=== PATIENT | male | born 1970 | race Caucasian/White ===

== ENCOUNTER → 2016-12-07 | Outpatient (CLI) | payer BC ==
--- NOTE | 2016-12-07 18:20 | MR ---
EXAMINATION TYPE: MR lumbar spine wo con DATE OF EXAM: 12/07/2016 10:48 AM COMPARISON: CT scan 04/01/2012 HISTORY: Low back pain, leg pain TECHNIQUE: T1 and T2 sagittal images of the lumbar spine are submitted. The patient could not cont inue with the exam. The patient experienced claustrophobia and axial images could not be obtained. FINDINGS: Findings are based on on sagittal images only due to the patient's claustrophobia At L4-L5 there appears to be degenerative disc disease and disc bulging or protrusion. Bilateral fora ham encroachment is noted. At L5-S1 there is a anterolisthesis grade 2 with severe degenerative disc disease. This results in mo derate to severe bilateral foraminal encroachment. Remaining levels demonstrate no evidence of degenerative disc disease, foraminal encroachment, sagitt al disc bulging or canal stenosis. Assessment spinal cord is limited to the T2 and T1 sagittal images with no definite abnormal signal. Paraspinal soft tissues additional structures are nondiagnostic. IMPRESSION: 1. Limited exam due to patient's claustrophobia with only sagittal images obtained. Grade 2 anterolis thesis of L5 on S1 with bilateral spondylolysis. There is severe bilateral foraminal encroachment. 2. Disc bulging or protrusion sagittally at L4-L5 with degenerative disc disease and bilateral forami nal encroachment.
== END | disposition home or self-care (01) ==
LOC: RADMRIMAIN 10:19
PROVIDERS: ATTEND Family Medicine
DX: M51.26 Other intervertebral disc displacement, lumbar region (principal); M43.17 Spondylolisthesis, lumbosacral region; M51.36 Other intervertebral disc degeneration, lumbar region
CPT/HCPCS: 72148

== ENCOUNTER 2017-05-07 08:27 | Day surgery (SDC) | payer BC ==
[2017-05-03 13:31] VITALS: BMI 28.2
[2017-05-07 08:42] VITALS: TEMP 98
[2017-05-07] MEDS ORDERED: LIDOCAINE 1% 20 ML VIAL (10MG/ML) FOR IV START INTRADERMA ONE (08:49)
[2017-05-07] MEDS ORDERED: LACTATED RINGERS 1,000 ML IV ONE (08:49)
[2017-05-07] MEDS ORDERED: MIDAZOLAM 2 MG/2 ML VIAL ONE (09:25)
[2017-05-07] MEDS ORDERED: fentaNYL (PF) 50 MCG/ML 2 ML AMP ONE (09:25)
[2017-05-07] MEDS ORDERED: IOHEXOL 180 MG/ML 1 ML ML ONE (09:25)
[2017-05-07] MEDS ORDERED: DEXAMETHASONE SOD PHOS (MDV) 100 MG/10 ML VIAL ONE (09:25)
--- NOTE | 2017-05-07 09:44 | P.PCN ---
Date of Procedure: 05/07/17 Preoperative Diagnosis: Postoperative Diagnosis: Procedure(s) Performed: Implants: Surgeon: Jignesh Chow Pathology: none sent Condition: stable Disposition: PACU Indications for Procedure: Operative Findings: Description of Procedure: PREOPERATIVE DIAGNOSIS: 1-Lumbar radiculitis. POSTOPERATIVE DIAGNOSIS: 1-Lumbar radiculitis. PROCEDURE 1. Lumbar epidural steroid injection under fluoroscopic guidance at the L4-L5 level. 2. Lumbar epidurogram. ANESTHESIA: Local with 1% lidocaine; conscious sedation with Versed/fentanyl. EBL: Minimal PROCEDURE INDICATION: The patient with low back pain and radiculitis symptoms unresponsive to conservative treatment, referred by Dr. Roldan because the patient is trying to avoid spine surgery. Fluoroscopy was used to optimize visualization of the needle placement and to maximize safety. No use of blood thinners. LESI #1 today. PROCEDURE DESCRIPTION / TECHNIQUE: The patient was seen and identified in the preoperative area. Risks, benefits, complications, and alternatives were discussed with the patient, including but not limited to bleeding, infection, nerve damage, allergic reactions to medications, and incomplete pain relief. The patient agreed to proceed with the procedure and signed the consent after all questions were answered. IV was started, and vital signs were stable. Patient was taken to the OR and time out was completed to confirm patient position, procedure, laterality of pain, and allergies. The patient was placed in the prone position on procedure table and a pillow was placed under the abdomen to reduce lumbar lordosis. The lumbosacral area was prepped and draped in the usual sterile fashion. Critical pause was taken. Vital signs were closely monitored during the procedure. Conscious sedation was used during the procedure to decrease patients anxiety. Using anterior-posterior fluoroscopy, the L4-L5 interlaminar space was identified and the skin over this site was marked and then infiltrated with 1% lidocaine subcutaneously. Subsequently, a 20-gauge 3.5-inch Tuohy epidural needle was inserted and advanced toward the epidural space using the Loss of resistance technique and guided by AP and lateral fluoroscopy. The correct needle position in the epidural space was verified with the injection of 2 mL of the water soluble contrast dye Omnipaque 300 contrast and observing an excellent epidurogram with the epidural spread of the dye, after negative aspiration for blood and CSF and in the absence of paresthesias. Again after negative aspiration, a 8 ml mixture containing 20 mg of Decadron and 5 ml of preservative free Normal Saline, and 2 ml of preservative free lidocaine 1% solution was injected and a washout of epidurogram was seen. Needle was withdrawn intact, skin was cleansed, and bandages were applied. COMPLICATIONS: None COMMENTS: DISPOSITION / PLANS: The patient was placed in a supine position and transferred to the recovery area in a stable condition for observation. There was no evidence of lower extremity motor or sensory deficit after the procedure. Patient was discharged from the recovery room after meeting discharge criteria. Home discharge instructions were given to the patient by the staff. The patient was reexamined prior to discharge and there were no issues. The patient will schedule follow-up LESI in 4-6 weeks.
[2017-05-07] MEDS ORDERED: IV FLUID CONTINUATION 550 ML IV ONE (09:55)
[2017-05-07 09:59] VITALS: RESP 18
[2017-05-07 10:41] VITALS: BP 123/76; PULSE 88
--- NOTE | 2017-05-07 12:07 | FL ---
Fluoroscopy HISTORY: Pain 10 seconds fluoroscopy time supplied to the referring clinician. 5 intraoperative C-arm images docum ent the procedure. See dictated report from anesthesia.
== END 2017-05-07 10:42 | disposition home or self-care (01) ==
LOC: ORPAIN 08:27
PROVIDERS: ATTEND Anesthesiology
DX: M54.16 Radiculopathy, lumbar region (principal); M43.17 Spondylolisthesis, lumbosacral region; Z79.1 Long term (current) use of non-steroidal anti-inflammatories (NSAID); Z79.899 Other long term (current) drug therapy
CPT/HCPCS: 99152; 62323; J2250; J1100; Q9965; J3010

== ENCOUNTER → 2017-06-24 | Outpatient (CLI) | payer BC ==
[2017-06-24 14:11] VITALS: BP 146/103; PULSE 125; RESP 16; TEMP 98.2
--- NOTE | 2017-06-24 14:41 | P.PN ---
Subjective This is follow-up visit for this patient with a history of severe and chronic low back pain secondary to lumbar degenerative disc diseases , lumbar foraminal stenosis , and anterior listhesis we have done interventional pain management injection, epidural steroid injections 1 and he is here today for follow-up visit he reported that he had 40% decrease in his pain but only for a few days, Physical Examinations : 1-Constitutiona : Cooperative , not in acute distress . 2-HEENT : nech ; supple , no Lymphadenopathy , no Thyromegaly , normal thyroid size . eyes : no ptosis , no icterus, no photophobia . ENT : normal of hearing , normal oropharynx , no Thrush . 3- Respiratory : Chest clear to auscultations Bilaterally , no wheezing , no Rhonchi . 4- Cardiovascular : regular rate and rhythem , S1 , S2 , no S3 , no S4. 5- Gastrointestinal : abdomen soft no tenderness , bowel sounds positive all four quadrents , no organomegally . 6- Genitourinary : Defferred . 7- neurologic : Cranial nerve II to XII intact , no focal neurological deffecit . 8-psychatric : alert , oriented X 3 , appropriate affect , intact judgment and insight . 9-Lymphatic : no Lymphadenopathy . 10- musculoskeltal : exams of the Lumber spine = motor strength lower extremities ,thigh and legs .5/5 deep tendon reflexes : normal Knee Jerk , normal ankle Jerk . lumber facet Loading Test positive strait leg raising test positive at 30 degree , RT ,LT , Fabere test positive RT and positive LT . Range of motion: Range of motion in flexion of the lumbar spine 30 degrees Range of motion range of motion of extension of the lumbar spine 10 Assessment and plan = Chronic low back pain secondary to lumbar degenerative disc disease , lumbar spondylolesthesis , or foraminal stenosis Patient had lumbar epidural steroid injections 1 , he had 40% decrease in his pain level and only lasted for a few days, as per guidelines of his insurance company, will not approve second injection unless he got 50% improvement in his pain level ,and should be increasing his activity of daily living is 50%, and he should be decrease in his pain medication This did not help and for this reason , the second injection would not be approved by his insurance, patient will follow up with Dr. Roldan to discuss surgical interventions, I encouraged patient to do aquatic therapy, continue to do physical therapy as he can and he reported that his done physical therapy on 2 different sessions without any benefit, he will follow up with the pain clinic when necessary Objective - Vital Signs Vital signs: Vital Signs Temp 98.2 F 06/24/17 14:06 Pulse 125 H 06/24/17 14:06 Resp 16 06/24/17 14:06 BP 146/103 06/24/17 14:06 Pulse Ox 95 06/24/17 14:06 Intake & Output 06/23/17 06/24/17 06/24/17 18:59 06:59 18:59 Weight 81.647 kg
== END ==
LOC: PNWHC3 13:55
DX: M99.73 Connective tissue and disc stenosis of intervertebral foramina of lumbar region (principal); M43.16 Spondylolisthesis, lumbar region; M51.36 Other intervertebral disc degeneration, lumbar region; Z79.891 Long term (current) use of opiate analgesic
CPT/HCPCS: 99211

== ENCOUNTER 2022-07-15 00:38 | Emergency (ER) | payer BC ==
[2022-07-15] MEDS ORDERED: SODIUM CHLORIDE 0.9% 500 ML 500 ML IV ONE (07:21)
[2022-07-15] MEDS ORDERED: MORPHINE SULFATE 4 MG/ML SYRINGE IVP STA ×2 (07:21→08:55)
[2022-07-15] MEDS ORDERED: cefTRIAXone IN SWFI 1,000 MG/10 ML SYRINGE IVP STA (07:22)
--- NOTE | 2022-07-15 07:46 | ED ---
Skin/Abscess/FB HPI - General Source: patient, RN notes reviewed, old records reviewed Mode of arrival: ambulatory Limitations: no limitations - History of Present Illness MD complaint: abscess/boil -: days(s) (1) Tetanus Up to Date: yes Location: genitals (scrotum) Severity scale (1-10): 10 Quality: constant Consistency: constant Associated symptoms: denies other symptoms <Dakota Mitchell - Last Filed: 07/15/22 09:43> <Nicolas Myers - Last Filed: 07/15/22 13:47> - General Chief complaint: Skin/Abscess/Foreign Body Stated complaint: Possible abscess Time Seen by Provider: 07/15/22 07:11 - History of Present Illness Initial comments: Well-appearing 52-year-old male who presents ambulatory with complaints of small bump to scrotum he noticed yesterday. Denies fevers, no nausea vomiting or d iarrhea. Denies any medical history. (Dakota Mitchell) - Related Data Home Medications Medication Instructions Recorded Confirmed Cyclobenzaprine [Flexeril] 10 mg PO TID PRN 05/03/17 06/24/17 Ibuprofen [Motrin] 800 mg PO BID PRN 05/03/17 06/24/17 Previous Rx's Medication Instructions Recorded Cephalexin [Keflex] 500 mg PO Q6HR 7 Days #28 cap 07/15/22 Sulfamethox-Tmp 800-160Mg [Bactrim 1 each PO Q12HR 7 Days #14 tab 07/15/22 Ds] Allergies Allergy/AdvReac Type Severity Reaction Status Date / Time No Known Allergies Allergy Verified 06/24/17 14:05 Review of Systems ROS Other: All systems not noted in ROS Statement are negative. <Dakota Mitchell - Last Filed: 07/15/22 09:43> ROS Other: All systems not noted in ROS Statement are negative. <Nicolas Myers - Last Filed: 07/15/22 13:47> ROS Statement: Those systems with pertinent positive or pertinent negative responses have been documented in the HPI. Past Medical History Past Medical History: Skin Disorder Additional Past Medical History / Comment(s): sciatic nerve pain, eczema, History of Any Multi-Drug Resistant Organisms: None Reported Additional Past Surgical History / Comment(s): tendon surgery middle finger rt hand Past Anesthesia/Blood Transfusion Reactions: Motion Sickness Past Psychological History: No Psychological Hx Reported Past Alcohol Use History: Occasional Additional Past Alcohol Use History / Comment(s): quit smoking about 5 yrs ago, smoked for 15 yrs, < 1 PPD Past Drug Use History: None Reported - Past Family History Mother Family Medical History: No Reported History <Dakota Mitchell - Last Filed: 07/15/22 09:43> General Exam Limitations: no limitations General appearance: alert, in no apparent distress Head exam: Present: atraumatic Eye exam: Present: normal appearance. Absent: periorbital swelling Neck exam: Present: full ROM. Absent: meningismus Respiratory exam: Absent: respiratory distress, accessory muscle use Cardiovascular Exam: Present: tachycardia GI/Abdominal exam: Present: soft. Absent: distended, tenderness, guarding, rebound, rigid exam: Present: scrotal swelling, other (Purulent draining abscess base of the left scrotum, open wound approximately 0.5cm) Extremities exam: Present: normal capillary refill Neurological exam: Present: alert, oriented X3, normal gait Psychiatric exam: Present: normal affect, normal mood Skin exam: Present: warm, dry, normal color. Absent: cyanosis, diaphoretic, petechiae, pallor <Dakota Mitchell - Last Filed: 07/15/22 09:43> Course Vital Signs 07/15/22 07/15/22 00:45 09:10 Temperature 97.8 F 98 F Pulse Rate 118 H 91 Respiratory 16 18 Rate Blood Pressure 167/90 148/84 O2 Sat by Pulse 98 97 Oximetry Medical Decision Making - Lab Data Result diagrams: 07/15/22 07:40 07/15/22 07:41 <Dakota Mitchell - Last Filed: 07/15/22 09:43> - Lab Data Result diagrams: 07/15/22 07:40 07/15/22 07:41 <Nicolas Myers - Last Filed: 07/15/22 13:47> - Medical Decision Making On physical exam there is a 0.5cm open wound with copious purulent drainage from left side scrotum. There is no evidence of leukocytosis. Patient denies any fevers, no nausea or vomiting. Ultrasound done shows Left-sided abscess measuring 5.5 x 4.0 x 3.1 separate from left testicle. Epididymis appears normal. There is trace bilateral hydroceles. Upon further questioning patient states that he is diabetic and takes metformin 1000 mg twice a day. He was directed to follow-up with Dr. Owen and urology within the next two days. Take antibiotics as prescribed, sitz baths to 3 times a day for the next 3 days to promote drainage. He is agreeable to this plan of care. Dr. Myers at bedside also agreeable to this plan of care. (Dakota Mitchell) - Lab Data Lab Results 07/15/22 07/15/22 07/15/22 Range/Units 07:40 07:41 07:49 WBC 10.9 H (3.8-10.6) k/uL RBC 4.31 (4.30-5.90) m/uL Hgb 14.1 (13.0-17.5) gm/dL Hct 39.0 (39.0-53.0) % MCV 90.4 (80.0-100.0) fL MCH 32.7 (25.0-35.0) pg MCHC 36.2 (31.0-37.0) g/dL RDW 13.2 (11.5-15.5) % Plt Count 258 (150-450) k/uL MPV 7.6 Neutrophils % 84 % Lymphocytes % 9 % Monocytes % 5 % Eosinophils % 1 % Basophils % 0 % Neutrophils # 9.1 H (1.3-7.7) k/uL Lymphocytes # 1.0 (1.0-4.8) k/uL Monocytes # 0.5 (0-1.0) k/uL Eosinophils # 0.1 (0-0.7) k/uL Basophils # 0.0 (0-0.2) k/uL Hyperchromasia Slight Sodium 130 L (137-145) mmol/L Potassium 4.2 (3.5-5.1) mmol/L Chloride 94 L (98-107) mmol/L Carbon Dioxide 22 (22-30) mmol/L Anion Gap 14 mmol/L BUN 11 (9-20) mg/dL Creatinine 0.70 (0.66-1.25) mg/dL Est GFR (CKD-EPI)AfAm >90 (>60 ml/min/1.73 sqM) Est GFR (CKD-EPI)NonAf >90 (>60 ml/min/1.73 sqM) Glucose 211 H (74-99) mg/dL Plasma Lactic Acid Daniel 1.9 (0.7-2.0) mmol/L Calcium 9.5 (8.4-10.2) mg/dL Total Bilirubin 1.1 (0.2-1.3) mg/dL AST 23 (17-59) U/L ALT 37 (4-49) U/L Alkaline Phosphatase 93 (38-126) U/L Total Protein 7.5 (6.3-8.2) g/dL Albumin 4.8 (3.5-5.0) g/dL Disposition Is patient prescribed a controlled substance at d/c from ED?: No Time of Disposition: 08:54 <Dakota Mitchell - Last Filed: 07/15/22 09:43> <Nicolas Myers - Last Filed: 07/15/22 13:47> Clinical Impression: Scrotal abscess, Cellulitis, scrotum, Hyperglycemia Disposition: HOME SELF-CARE Condition: Good Instructions (If sedation given, give patient instructions): Cellulitis (ED), Abscess (ED) Additional Instructions: Soak in a sitz bath 2-3 times a day for 15 minutes for the next 3 days. Take antibiotics as prescribed. Tylenol and or Motrin as needed for pain or discomfort. Follow-up with the primary care doctor next week and discuss your elevated blood glucose levels. Prescriptions: Sulfamethox-Tmp 800-160Mg [Bactrim Ds] 1 each PO Q12HR 7 Days #14 tab Cephalexin [Keflex] 500 mg PO Q6HR 7 Days #28 cap Referrals: Abelardo Owen MD [Primary Care Provider] - 1-2 days Robin Shields MD [STAFF PHYSICIAN] - 1-2 days
[2022-07-15 08:07] LABS: Basophils % (A) 0 %; Eosinophils # (A) 0.1 k/uL (0-0.7); Eosinophils % (A) 1 %; HGB 14.1 gm/dL (13.0-17.5); Hyperchromasia Slight; Lymphocytes % (A) 9 %; MCH 32.7 pg (25.0-35.0); MCHC 36.2 g/dL (31.0-37.0); MCV 90.4 fL (80.0-100.0); Mean Platelet Volume 7.6; Monocytes # (A) 0.5 k/uL (0-1.0); Monocytes % (A) 5 %; Neutrophils # (A) 9.1 k/uL (1.3-7.7); Neutrophils % (A) 84 %; Platelet Count 258 k/uL (150-450); RBC 4.31 m/uL (4.30-5.90); RDW 13.2 % (11.5-15.5); WBC 10.9 k/uL (3.8-10.6)
--- NOTE | 2022-07-15 08:54 | US ---
EXAMINATION TYPE: US scrotum with doppler. DATE OF EXAM: 07/15/2022 COMPARISON: NONE CLINICAL HISTORY: 52-year-old male abscess. Pt states left scrotal swelling and pain x 2 days, active foul smelling drainage from left scrotum TECHNIQUE: Grayscale and color Doppler Duplex imaging performed of the scrotum. FINDINGS: EXAM MEASUREMENTS: TESTICLES: Right Testicle: 4.8 x 2.8 x 4.0 cm Left Testicle: 4.6 x 2.5 x 3.7 cm EPIDIDYMIS HEAD: Right Epididymis: 1.2 cm Left Epididymis: 1.4 cm Doppler performed to assess for testicular vascularity; good bilateral color flow and waveforms are s een. There is no evidence of testicular torsion. Both testicles show normal homogeneous appearance without hyperemia. Presence of hydroceles: Symmetric trace to small bilateral hydroceles. Presence of varicoceles: No Individual [employer] In[employer] notes: 5.5 x 3.1 x 4.0 cm fluid collection with mobile debris in area of pt's pain and lump (lateral and s eparate from left testicle)- actively draining during exam- purulent drainage- probable abscess IMPRESSION: 1. Left-sided abscess measuring 5.5 x 4.0 x 3.1 cm separate from the left testicle. The underlying te sticle and epididymis appears normal. 2. Trace to small bilateral hydroceles.
[2022-07-15 09:06] LABS: ALT 37 U/L (4-49); AST 23 U/L (17-59); African American GFR (CKD) >90 (>60 ml/min/1.73 sqM); Albumin 4.8 g/dL (3.5-5.0); Alkaline Phosphatase 93 U/L (38-126); Anion Gap 14 mmol/L; Blood Urea Nitrogen 11 mg/dL (9-20); Calcium 9.5 mg/dL (8.4-10.2); Carbon Dioxide 22 mmol/L (22-30); Chloride 94 mmol/L (98-107); Glucose 211 mg/dL (74-99); Non-African American GFR(CKD) >90 (>60 ml/min/1.73 sqM); Potassium 4.2 mmol/L (3.5-5.1); Sodium 130 mmol/L (137-145); Total Bilirubin 1.1 mg/dL (0.2-1.3); Total Protein 7.5 g/dL (6.3-8.2)
[2022-07-15 09:14] VITALS: BP 148/84; PULSE 91; RESP 18; TEMP 98
== END 2022-07-15 09:42 | disposition home or self-care (01) ==
LOC: EC 00:38
DX: N49.2 Inflammatory disorders of scrotum (principal); R73.9 Hyperglycemia, unspecified; Z79.899 Other long term (current) drug therapy
CPT/HCPCS: 36415; 76870; 80053; 83605; 85025; 87040; 87070; 87205; 93975; 96361; 96374; 96375; 96376; 99283